=== PATIENT | female | born 1995 | race African-American/Black ===

== ENCOUNTER 2023-04-28 13:40 | Emergency (ER) | payer SELFPAY ==
[2023-04-28] MEDS ORDERED: Proparacaine 0.5% Opth 15 ML BOT ONE (14:15)
[2023-04-28] MEDS ORDERED: Acetaminophen 325 MG TAB ONE (15:32)
[2023-04-28] MEDS ORDERED: Fluorescein Opthalmic Strip ONE (16:20)
== END 2023-04-28 17:40 | disposition home or self-care (01) ==
LOC: ERS 13:40
DX: T65.94XA Toxic effect of unspecified substance, undetermined, initial encounter (principal)
CPT/HCPCS: 99283